=== PATIENT | male | born 1995 | race Caucasian/White ===

== ENCOUNTER 2021-01-26 23:19 | Emergency (ER) | payer OTHER ==
[~2021-01-26] VITALS: Ht 175.3 cm; Wt 105.2 kg
[2021-01-26 23:36] VITALS: BP 124/62
[2021-01-27] MEDS ORDERED: IBUPROFEN 800 MG TAB PO ONE (01:00)
[2021-01-27] MEDS ORDERED: BACITRACIN OINT 500 UNITS/GM PKT TP ONE (02:08)
[2021-01-27 03:33] VITALS: BP 122/80
== END 2021-01-27 03:34 | disposition home or self-care (01) ==
LOC: MED 23:19
DX: S40.212A Abrasion of left shoulder, initial encounter (principal); M54.2 Cervicalgia; R07.89 Other chest pain; V89.2XXA Person injured in unspecified motor-vehicle accident, traffic, initial encounter; Y93.89 Activity, other specified; Y92.89 Other specified places as the place of occurrence of the external cause; Y99.8 Other external cause status
CPT/HCPCS: 71101; 72050; 73562; 90471; 90715; 93005; 99284